=== PATIENT | female | born 2000 | race Two or more races ===

== ENCOUNTER 2024-07-28 14:59 | Emergency (ER) | payer OTHER, BC ==
[~2024-07-28] VITALS: Ht 165.1 cm; Wt 59.0 kg
[2024-07-28 15:16] VITALS: BP 90/58; TEMP 98.6
[2024-07-28] MEDS ORDERED: ONDA4TAB5 PO (15:45)
[2024-07-28 16:10] LABS: PREGNANCY TEST URINE QUAL NEGATIVE (NEGATIVE)
[2024-07-28 17:10] VITALS: O2SAT 98
== END 2024-07-28 17:00 | disposition home or self-care (01) ==
LOC: ER 16:14
DX: S83.92XA Sprain of unspecified site of left knee, initial encounter (principal); V13.4XXA Pedal cycle driver injured in collision with car, pick-up truck or van in traffic accident, initial encounter; Y93.55 Activity, bike riding; Y92.89 Other specified places as the place of occurrence of the external cause; Y99.8 Other external cause status
CPT/HCPCS: 73564-TC; 84703-TC